=== PATIENT | male | born 1955 ===

== ENCOUNTER 2025-01-04 12:08 | Outpatient (CLI) | payer OTHER | END 2025-01-04 12:09 | disposition home or self-care (01) | LOC: CSHSLEEP 12:08 | PROVIDERS: ATTEND Internal Medicine | DX: G47.33 Obstructive sleep apnea (adult) (pediatric) (principal); R09.89 Other specified symptoms and signs involving the circulatory and respiratory systems; G25.89 Other specified extrapyramidal and movement disorders; R06.83 Snoring; E66.9 Obesity, unspecified; Z68.34 Body mass index [BMI] 34.0-34.9, adult | CPT/HCPCS: 95800 ==